=== PATIENT | female | born 1995 | race American Indian/Alaskan Native ===

== ENCOUNTER 2016-12-11 21:03 | Emergency (ER) | payer OTHER ==
[2016-12-11 21:10] VITALS: BMI 31.6
[2016-12-11 21:56] LABS: URINE BACTERIA RARE (<OCC); URINE BILIRUBIN NEGATIVE (NEGATIVE); URINE BLOOD NEGATIVE (NEGATIVE); URINE COLOR Yellow (YELLOW); URINE GLUCOSE (UA) NORMAL (Normal); URINE KETONE NEGATIVE (NEGATIVE); URINE LEUKOCYTE ESTERASE NEG Leu/uL (Negative); URINE PROTEIN NEGATIVE (NEGATIVE); WBC URINE 4 /hpf (0-5)
--- NOTE | 2016-12-11 23:07 | OBDCSUM ---
Datetime: 12/11/2016 22:21 Discharged to, Provider: Home Follow up at, Provider: [facility] Disch Instr Activity: Normal activity Disch Instr Diet: Regular Discharge Time: 12/11/2016 22:21 Disch Referrals: None Discharge Comment, Provider: labor and preeclqmptis precautiosns
--- NOTE | 2016-12-11 23:08 | OBHP ---
Datetime: 12/11/2016 22:21 IP Admit Plan: Discharge home Admit Comment, IP Provider: @ 37 wks GA reports new onsent of headache taht tstarted a few hour s ago but is startign to feel better. Pt reporst on right side, no radiation, or previous hx. Pt den ies any blurry vision, RUQ/epigastri pain, ctx, lof, vb, +FM. Pt reporst soem discharge, no itching, no odor, no bowel or bladder compliants. Pt reports last appointmetn was on Monday adn did not go and needs to call tomorrow for an appointemtn. Pt reports uncomplicated care. Ante: PNC at clinic OB: x 1 FT 5lbs reports high blood presusure with induction denies any medicatin, magnesuum s uflate, preeclampsi , ETOP x 4 [employer]: denies hx of sti, fibroid, cysts, etc PMYP dnies PSH: DxC multiple FHX: non continubtory SHX: denies etohh, tobacco MEDS none A/P P1 @ 37 + wks with headache now resolved , no evidence of ROM, stable, -NST reactive -no evdicne of preealmcpis or labor -d/c home -f/u clinic monday morning -labor/preelcamptic precuatiosn given Pelvic Type - PN: Adequate Extremities - PN: Normal Abdomen - PN: Normal Back - PN: Normal Breast - PN: Not Done Lungs - PN: Normal Heart - PN: Normal Thyroid - PN: Not Done Neurologic - PN: Normal HEENT - PN: Normal General - PN: Normal Comments, ACOG Physical Exam: Speculum Exam: negatieve pooling, nitrazine VE: Long/closed/posterior Gestation - Est Wks by US: 37.0 EGA AdmitDate IP: 37.0 IP Chief Complaint: Other Genitourinary Exam: Normal DTRs - PN: Normal
[2016-12-12 03:28] VITALS: BP 118/86; PULSE 91; TEMP 98.2
== END 2016-12-11 22:56 | disposition home or self-care (01) ==
LOC: C.EROB 21:03
DX: O26.893 Other specified pregnancy related conditions, third trimester (principal); R51 Headache; Z3A.37 37 weeks gestation of pregnancy